=== PATIENT | male | born 1990 | race Caucasian/White ===

== ENCOUNTER 2023-04-26 08:47 | Inpatient (IN) | payer BC ==
[~2023-04-26] VITALS: Ht 182.9 cm; Wt 89.4 kg
[2023-04-26] MEDS ORDERED: ONDANSETRON HCL/PF 4 MG/2 ML VIAL ONE ×2 (09:19→09:30)
[2023-04-26] MEDS ORDERED: ONDANSETRON HCL/PF 4 MG/2 ML VIAL IV ONE (09:30)
[2023-04-26] MEDS ORDERED: METOPROLOL TARTRATE INJ 5 MG/5 ML AMPUL ONE ×2 (09:30→10:36)
[2023-04-26] MEDS ORDERED: METOPROLOL TARTRATE INJ 5 MG/5 ML AMPUL IV ONE ×2 (09:30→10:30)
[2023-04-26] MEDS ORDERED: IV NS 0.9% 1,000 ML BAG IV ONE (09:30)
[2023-04-26 09:41] LABS: BASOPHILS # (AUTO) 0.1 K/uL (0.0-0.2); EOSINOPHILS # (AUTO) 0.3 K/uL (0.0-0.7); EOSINOPHILS % (AUTO) 5.7 % (0.0-6.0); HEMATOCRIT 48 % (39-51); HEMOGLOBIN 16.3 g/dL (13.5-17.5); LYMPHOCYTES # (AUTO) 1.8 K/uL (0.8-4.8); LYMPHOCYTES % (AUTO) 33.7 % (20.0-44.0); MEAN CORPUSCULAR HEMOGLOBIN 31 PG (26.0-33.0); MEAN CORPUSCULAR HGB CONC 34 g/dl (31.0-36.0); MEAN CORPUSCULAR VOLUME 92 fL (80-96); MONOCYTES # (AUTO) 0.3 K/uL (0.1-1.30); MONOCYTES % (AUTO) 5.7 % (2.0-12.0); NEUTROPHILS # (AUTO) 2.9 K/uL (1.8-8.9); NEUTROPHILS % (AUTO) 53.9 % (43.0-81.0); PLATELET COUNT (AUTO) 186 K/uL (150-450); RED BLOOD CELL COUNT(AUTO) 5.27 MIL/uL (4.5-6.0); RED CELL DISTRIBUTION WIDTH 12.6 % (11.5-15.0); WHITE BLOOD COUNT (AUTO) 5.3 K/uL (4.3-11.0)
[2023-04-26 10:00] LABS: CALCIUM, SERUM 9.1 mg/dL (8.5-10.1); CARBON DIOXIDE 27 mmol/L (21-32); CHLORIDE 101 mmol/L (98-107); GLUCOSE 103 mg/dL (74-106); POTASSIUM 3.8 mmol/L (3.5-5.1); SODIUM SERUM 138 mmol/L (136-145); UREA NITROGEN, BLOOD 18 mg/dL (7-18)
[2023-04-26 10:14] LABS: THYROID STIMULATING HORMONE 3.372 uIU/mL (0.358-3.74)
[2023-04-26] MEDS ORDERED: ENOXAPARIN SODIUM 80 MG/0.8 ML DISP.SYRIN SQ ONE (11:00)
[2023-04-26] MEDS ORDERED: ENOXAPARIN SODIUM 30 MG/0.3 ML DISP.SYRIN ONE (11:05)
[2023-04-26] MEDS ORDERED: ENOXAPARIN SODIUM 60 MG/0.6 ML DISP.SYRIN SQ ONE (11:05)
[2023-04-26] MEDS ORDERED: Magnesium 1 GM/2 ML VIAL IV ONE (12:30)
[2023-04-26] MEDS ORDERED: Magnesium 1 GM/2 ML VIAL ONE (12:47)
[2023-04-26] MEDS ORDERED: ZOLPIDEM TARTRATE 5 MG TABLET PO PRN (18:30)
[2023-04-26] MEDS ORDERED: Z GUARD REMEDY 4 OZ OINT TP PRN (18:30)
[2023-04-26] MEDS ORDERED: MAGNESIUM HYDROXIDE 30 ML UDC PO PRN (18:30)
[2023-04-26] MEDS ORDERED: ACETAMINOPHEN 325 MG TABLET PO PRN (18:30)
[2023-04-26] MEDS ORDERED: ONDANSETRON HCL/PF 4 MG/2 ML VIAL IVP PRN (18:30)
[2023-04-26] MEDS ORDERED: MAG HYDROX/AL HYDROX/SIMETH 30 ML UDC PO PRN (18:30)
[2023-04-26 22:30] VITALS: BP 107/92; TEMP 98; O2SAT 95
[2023-04-27] MEDS: DILTIAZEM HCL 30 MG TABLET PO SCH ×3 (00:28→12:56)
[2023-04-27 07:44] LABS: BASOPHILS % (AUTO) 0.8 % (0.0-2.0); EOSINOPHILS # (AUTO) 0.3 K/uL (0.0-0.7); HEMATOCRIT 48 % (39-51); HEMOGLOBIN 16.2 g/dL (13.5-17.5); LYMPHOCYTES # (AUTO) 2.2 K/uL (0.8-4.8); LYMPHOCYTES % (AUTO) 38.2 % (20.0-44.0); MEAN CORPUSCULAR HEMOGLOBIN 31 PG (26.0-33.0); MEAN CORPUSCULAR HGB CONC 34 g/dl (31.0-36.0); MEAN CORPUSCULAR VOLUME 91 fL (80-96); MONOCYTES # (AUTO) 0.4 K/uL (0.1-1.30); MONOCYTES % (AUTO) 6.5 % (2.0-12.0); NEUTROPHILS # (AUTO) 2.8 K/uL (1.8-8.9); NEUTROPHILS % (AUTO) 48.5 % (43.0-81.0); PLATELET COUNT (AUTO) 172 K/uL (150-450); RED BLOOD CELL COUNT(AUTO) 5.23 MIL/uL (4.5-6.0); RED CELL DISTRIBUTION WIDTH 12.8 % (11.5-15.0); WHITE BLOOD COUNT (AUTO) 5.8 K/uL (4.3-11.0)
[2023-04-27 08:00] VITALS: BP 134/73; TEMP 97.7; O2SAT 97
[2023-04-27 08:09] LABS: CALCIUM, SERUM 8.7 mg/dL (8.5-10.1); CREATININE 1.1 mg/dL (0.6-1.3); MAGNESIUM 2.3 mg/dL (1.8-2.4); PHOSPHORUS 4.1 mg/dL (2.5-4.9)
[2023-04-27] MEDS: PANTOPRAZOLE 40 MG TABLET.DR PO SCH (08:36)
[2023-04-27] MEDS ORDERED: ENOXAPARIN SODIUM 40 MG/0.4 ML DISP.SYRIN SQ SCH (09:00)
[2023-04-27 12:00] VITALS: BP 118/89; TEMP 97.9; O2SAT 97
[2023-04-27] MEDS: APIXABAN 5 MG TABLET PO SCH ×2 (13:30→17:00)
[2023-04-27] MEDS ORDERED: AMIODARONE 450 MG in IV D5W 241 ML IV PRN (13:30)
[2023-04-27] MEDS ORDERED: AMIODARONE 450 MG in IV D5W 250 ML IV PRN (13:30)
[2023-04-27] MEDS ORDERED: AMIODARONE 150 MG in IV D5W 100 ML IV ONE (13:30)
[2023-04-27 16:00] VITALS: BP 116/85; TEMP 97.2; O2SAT 97
[2023-04-27] MEDS: AMIODARONE 450 MG in IV D5W 241 ML IV PRN ×2 (17:39→22:36)
[2023-04-27 18:58] LABS: AMPHETAMINE, URINE NEGATIVE (NEGATIVE); BARBITURATE, URINE NEGATIVE (NEGATIVE); BENZODIAZEPINE, URINE NEGATIVE (NEGATIVE); CANNABINOID, URINE NEGATIVE (NEGATIVE); COCCAINE, URINE NEGATIVE (NEGATIVE); OPIATE, URINE NEGATIVE (NEGATIVE); PHENCYCLIDINE SCREEN,URINE NEGATIVE (NEGATIVE)
[2023-04-27 20:00] VITALS: BP 126/80; TEMP 97.7; O2SAT 98
[2023-04-28] VITALS: BP 116/88; TEMP 98.2; O2SAT 96
[2023-04-28 04:00] VITALS: BP 109/73; TEMP 97.5; O2SAT 65
[2023-04-28 08:00] VITALS: BP 114/78; TEMP 97.7; O2SAT 97
[2023-04-28] MEDS: PANTOPRAZOLE 40 MG TABLET.DR PO SCH (08:15)
[2023-04-28] MEDS: APIXABAN 5 MG TABLET PO SCH (08:16)
[2023-04-28 12:00] VITALS: BP 130/73; TEMP 98.2; O2SAT 98
== END 2023-04-28 13:19 | disposition home or self-care (01) | DRG 309 ==
LOC: ER 08:52 → TELE1 21:31 → TELE-TD 04-27 15:48 → TELE1 04-28 08:49
PROVIDERS: ADMIT Student in an Organized Health Care Education/Training Program
DX: I48.91 Unspecified atrial fibrillation (principal); D68.69 Other thrombophilia; Z82.49 Family history of ischemic heart disease and other diseases of the circulatory system
CPT/HCPCS: 36415; 71045-TC; 80048-TC; 83735-TC; 84100-TC; 84439-TC; 84443-TC; 84484-TC; 85025-TC; 93307-TC; A4223; G0378; J0282; J1650; J2405; J3475; J3490; J7050; J7060

== ENCOUNTER 2023-08-05 22:39 | Emergency (ER) | payer BC ==
[~2023-08-05] VITALS: Ht 182.9 cm; Wt 95.3 kg
[2023-08-05] MEDS ORDERED: ASPIRIN 325 MG TABLET ONE (23:06)
[2023-08-05] MEDS: ASPIRIN 325 MG TABLET PO ONE (23:07)
[2023-08-05 23:13] LABS: BASOPHILS % (AUTO) 0.6 % (0.0-2.0); EOSINOPHILS # (AUTO) 0.5 K/uL (0.0-0.7); EOSINOPHILS % (AUTO) 7.9 % (0.0-6.0); HEMATOCRIT 45 % (39-51); HEMOGLOBIN 15.3 g/dL (13.5-17.5); LYMPHOCYTES # (AUTO) 2.7 K/uL (0.8-4.8); LYMPHOCYTES % (AUTO) 41.3 % (20.0-44.0); MEAN CORPUSCULAR HEMOGLOBIN 31 PG (26.0-33.0); MEAN CORPUSCULAR HGB CONC 34 g/dl (31.0-36.0); MEAN CORPUSCULAR VOLUME 90 fL (80-96); MONOCYTES # (AUTO) 0.5 K/uL (0.1-1.30); MONOCYTES % (AUTO) 8.1 % (2.0-12.0); NEUTROPHILS # (AUTO) 2.7 K/uL (1.8-8.9); NEUTROPHILS % (AUTO) 42.1 % (43.0-81.0); PLATELET COUNT (AUTO) 169 K/uL (150-450); RED BLOOD CELL COUNT(AUTO) 5.01 MIL/uL (4.5-6.0); RED CELL DISTRIBUTION WIDTH 12.5 % (11.5-15.0); WHITE BLOOD COUNT (AUTO) 6.5 K/uL (4.3-11.0)
[2023-08-05 23:21] LABS: CARBON DIOXIDE 26 mmol/L (21-32); CHLORIDE 104 mmol/L (98-107); CREATININE 1.1 mg/dL (0.6-1.3); GLUCOSE 150 mg/dL (74-106); POTASSIUM 3.3 mmol/L (3.5-5.1); SODIUM SERUM 139 mmol/L (136-145); UREA NITROGEN, BLOOD 19 mg/dL (7-18)
[2023-08-05] MEDS ORDERED: POTASSIUM CHLORIDE 20 MEQ TAB.PRT.SR PO ONE (23:38)
[2023-08-05] MEDS: POTASSIUM CHLORIDE 20 MEQ TAB.PRT.SR PO ONE (23:38)
[2023-08-06 00:57] VITALS: BP 123/84; TEMP 98.3; O2SAT 98
== END 2023-08-06 00:57 | disposition home or self-care (01) ==
LOC: ER 22:42
DX: I48.91 Unspecified atrial fibrillation (principal); Z98.890 Other specified postprocedural states
CPT/HCPCS: 36415; 71045-TC; 80048-TC; 84484-TC; 85025-TC